=== PATIENT | female | born 1995 | race Hispanic/Latino ===

== ENCOUNTER 2018-12-30 02:55 | Emergency (ER) | payer OTHER ==
[2018-12-30] MEDS ORDERED: SODIUM CHLORIDE 0.9% 1000ML 1,000 ML IV ONE (03:40)
[2018-12-30 03:51] LABS: APPEARANCE,URINE Cloudy (CLEAR); BASOPHILS % (AUTO) 0.5 % (0.0-5.0); BILIRUBIN,URINE Negative (NEGATIVE); COLOR,URINE Yellow (YELLOW); GLUCOSE, URINE (UA) Negative (NEGATIVE); KETONES,URINE Negative (NEGATIVE); LEUKOCYTE ESTERASE ,URINE Moderate (NEGATIVE); MEAN CORPUSCULAR HEMOGLOBIN 25.7 pg (27.0-33.0); MEAN CORPUSCULAR HGB CONC 33.5 g/dL (32.0-36.0); MEAN CORPUSCULAR VOLUME 76.7 fL (79-99); MONOCYTES % (AUTO) 6.3 % (3.0-13.0); NEUTROPHILS % (AUTO) 63.2 % (40.0-77.0); NITRATE,URINE Negative (NEGATIVE); OCCULT BLOOD,URINE Large (NEGATIVE); PLATELET COUNT (AUTO) 306 K/uL (130-400); PROTEIN,URINE Negative (NEGATIVE); RED BLOOD CELL COUNT(AUTO) 4.43 MIL/uL (4.00-5.50); WHITE BLOOD COUNT (AUTO) 10.4 K/uL (4.8-10.8)
[2018-12-30 04:12] LABS: BACTERIA,URINE Moderate /HPF (None Seen); SQUAMOUS EPITHELIAL CELL,UR Few /HPF (0-2)
[2018-12-30 04:17] LABS: CREATININE 0.7 mg/dL (0.5-1.5); POTASSIUM 3.5 mmol/L (3.5-5.1)
[2018-12-30] MEDS ORDERED: CEPHALEXIN 500 MG CAPSULE ONE (04:33)
== END 2018-12-30 05:06 | disposition home or self-care (01) ==
LOC: EDH 02:55
DX: O20.0 Threatened abortion (principal); O23.41 Unspecified infection of urinary tract in pregnancy, first trimester; Z3A.01 Less than 8 weeks gestation of pregnancy
CPT/HCPCS: 36415; 76801; 80048; 81001; 84702; 85025; 86850; 86900; 86901; 99285; J7030

== ENCOUNTER 2019-04-23 23:37 | Observation (INO) | payer MEDICAID ==
[~2019-04-23] VITALS: Ht 154.9 cm; Wt 85.3 kg
[2019-04-24 00:07] LABS: BILIRUBIN,URINE Negative (NEGATIVE); COLOR,URINE Yellow (YELLOW); GLUCOSE, URINE (UA) Negative (NEGATIVE); KETONES,URINE Negative (NEGATIVE); LEUKOCYTE ESTERASE ,URINE Negative (NEGATIVE); NITRATE,URINE Negative (NEGATIVE); OCCULT BLOOD,URINE Negative (NEGATIVE); PH,URINE 6.5 (5.0-8.0); PROTEIN,URINE Negative (NEGATIVE)
[2019-04-24 00:16] LABS: APPEARANCE,URINE CLEAR (CLEAR)
[2019-04-24 00:37] VITALS: BP 120/68
[2019-04-24 00:40] LABS: AMPHET/METH SCREEN,URINE NEGATIVE (NEGATIVE); BARBITURATE SCREEN, URINE NEGATIVE (NEGATIVE); BENZODIAZEPINES SCREEN,URINE NEGATIVE (NEGATIVE); CANNABINOID SCREEN,URINE NEGATIVE (NEGATIVE); COCAINE SCREEN,URINE NEGATIVE (NEGATIVE); OPIATE SCREEN,URINE NEGATIVE (NEGATIVE); PHENCYCLIDINE SCREEN,URINE NEGATIVE (NEGATIVE)
== END 2019-04-24 01:00 | disposition home or self-care (01) ==
LOC: EDH 23:37 → LDH 23:38
PROVIDERS: ADMIT Obstetrics & Gynecology; ATTEND Obstetrics & Gynecology
DX: O36.8130 Decreased fetal movements, third trimester, not applicable or unspecified (principal); O99.012 Anemia complicating pregnancy, second trimester; D64.9 Anemia, unspecified; Z3A.23 23 weeks gestation of pregnancy
CPT/HCPCS: 80305; 81003; 99284; G0378

== ENCOUNTER 2019-06-13 20:46 | Observation (INO) | payer MEDICAID ==
[~2019-06-13] VITALS: Ht 152.4 cm; Wt 88.5 kg
[2019-06-13] MEDS ORDERED: LACTATED RINGERS 1000ML 1,000 ML IV SCH (21:15)
[2019-06-13] MEDS ORDERED: PREN-196 PO (21:20)
[2019-06-13 21:46] LABS: APPEARANCE,URINE CLOUDY (CLEAR); BILIRUBIN,URINE NEGATIVE (NEGATIVE); COLOR,URINE YELLOW (YELLOW); GLUCOSE, URINE (UA) NEGATIVE (NEGATIVE); KETONES,URINE 15 mg/dL (NEGATIVE); LEUKOCYTE ESTERASE ,URINE MODERATE (NEGATIVE); NITRATE,URINE NEGATIVE (NEGATIVE); OCCULT BLOOD,URINE TRACE-INTACT (NEGATIVE); PROTEIN,URINE TRACE mg/dL (NEGATIVE)
[2019-06-13 21:58] LABS: BACTERIA,URINE Many /HPF (None Seen); MUCUS,URINE Moderate LPF (None Seen); SQUAMOUS EPITHELIAL CELL,UR Many /HPF (0-2); WBC,URINE 26-50 /HPF (0-1)
[2019-06-13 22:02] LABS: AMPHET/METH SCREEN,URINE NEGATIVE (NEGATIVE); BARBITURATE SCREEN, URINE NEGATIVE (NEGATIVE); BENZODIAZEPINES SCREEN,URINE NEGATIVE (NEGATIVE); CANNABINOID SCREEN,URINE NEGATIVE (NEGATIVE); COCAINE SCREEN,URINE NEGATIVE (NEGATIVE); OPIATE SCREEN,URINE NEGATIVE (NEGATIVE); PHENCYCLIDINE SCREEN,URINE NEGATIVE (NEGATIVE)
[2019-06-13 22:50] VITALS: BP 117/69
[2019-06-13] MEDS ORDERED: IRON-23 PO (22:55)
[2019-06-13] MEDS ORDERED: METR-172 PO (22:55)
== END 2019-06-13 23:25 | disposition home or self-care (01) ==
LOC: EDH 20:46 → LDH 20:47
PROVIDERS: ADMIT Obstetrics & Gynecology; ATTEND Obstetrics & Gynecology
DX: O36.8130 Decreased fetal movements, third trimester, not applicable or unspecified (principal); Z3A.29 29 weeks gestation of pregnancy
CPT/HCPCS: 59025; 76819; 80305; 81001; 99284; G0378 ×2

== ENCOUNTER 2019-06-21 18:15 | Observation (INO) | payer MEDICAID ==
[~2019-06-21] VITALS: Ht 154.9 cm; Wt 88.9 kg
[~2019-06-21 18:15] MED LIST: IRON-23 PO; METR-172 PO; PREN-196 PO
[2019-06-21 19:34] LABS: APPEARANCE,URINE Cloudy (CLEAR); BILIRUBIN,URINE Negative (NEGATIVE); COLOR,URINE Yellow (YELLOW); GLUCOSE, URINE (UA) Negative (NEGATIVE); KETONES,URINE 40 mg/dL (NEGATIVE); LEUKOCYTE ESTERASE ,URINE Large (NEGATIVE); NITRATE,URINE Negative (NEGATIVE); OCCULT BLOOD,URINE Negative (NEGATIVE); PROTEIN,URINE POS 1+ mg/dL (NEGATIVE)
[2019-06-21 19:47] LABS: BACTERIA,URINE Few /HPF (None Seen); RBC,URINE None Seen /HPF (0-1)
[2019-06-21 20:06] VITALS: BP 113/57
[2019-06-21 20:07] LABS: AMPHET/METH SCREEN,URINE NEGATIVE (NEGATIVE); BARBITURATE SCREEN, URINE NEGATIVE (NEGATIVE); BENZODIAZEPINES SCREEN,URINE NEGATIVE (NEGATIVE); CANNABINOID SCREEN,URINE NEGATIVE (NEGATIVE); COCAINE SCREEN,URINE NEGATIVE (NEGATIVE); OPIATE SCREEN,URINE NEGATIVE (NEGATIVE); PHENCYCLIDINE SCREEN,URINE NEGATIVE (NEGATIVE)
[2019-06-21] MEDS ORDERED: LACTATED RINGERS 1000ML IV ONE (20:15)
[2019-06-21] MEDS ORDERED: LACTATED RINGERS 1000ML 1,000 ML IV SCH (21:15)
== END 2019-06-21 22:25 | disposition home or self-care (01) ==
LOC: EDH 18:15 → LDH 19:09
PROVIDERS: ADMIT Obstetrics & Gynecology; ATTEND Obstetrics & Gynecology
DX: O9A.213 Injury, poisoning and certain other consequences of external causes complicating pregnancy, third trimester (principal); M54.5 Low back pain; Z3A.31 31 weeks gestation of pregnancy; W18.39XA Other fall on same level, initial encounter; Y93.01 Activity, walking, marching and hiking; Y92.89 Other specified places as the place of occurrence of the external cause; Y99.8 Other external cause status
CPT/HCPCS: 59025; 80305; 81001; 99284; G0378 ×3; 96360; 96361

== ENCOUNTER 2019-07-23 14:31 | Observation (INO) | payer MEDICAID | END 2019-07-23 16:30 | disposition home or self-care (01) | LOC: LDH 14:31 | PROVIDERS: ADMIT Obstetrics & Gynecology; ATTEND Obstetrics & Gynecology | DX: O34.63 Maternal care for abnormality of vagina, third trimester (principal); Z3A.35 35 weeks gestation of pregnancy | CPT/HCPCS: 59025; 76805; G0378 ==

== ENCOUNTER 2019-07-29 10:49 | Inpatient (IN) | payer MEDICAID ==
[~2019-07-29] VITALS: Ht 152.4 cm; Wt 93.0 kg
[2019-07-29 12:56] LABS: HEMATOCRIT 32.8 % (36-48); MEAN CORPUSCULAR HEMOGLOBIN 25.2 pg (27.0-33.0); MEAN CORPUSCULAR VOLUME 78.7 fL (79-99); PLATELET COUNT (AUTO) 270 K/uL (130-400); RED BLOOD CELL COUNT(AUTO) 4.17 MIL/uL (4.00-5.50); RED CELL DISTRIBUTION WIDTH 15.9 % (11.0-15.5); WHITE BLOOD COUNT (AUTO) 6.9 K/uL (4.8-10.8)
[2019-07-29 13:10] LABS: CREATININE 0.7 mg/dL (0.5-1.5); POTASSIUM 3.8 mmol/L (3.5-5.1)
[2019-07-29 13:14] LABS: ALBUMIN 2.7 g/dL (3.5-5.0); BILIRUBIN,TOTAL 0.2 mg/dL (0.2-1.0); CRP QUANTITATIVE 10.1 mg/L (0.00-9.0); TOTAL PROTEIN, SERUM 7.2 g/dL (6.0-8.3)
[2019-07-29 13:26] LABS: BASOPHILS % (AUTO) 0.4 % (0.0-5.0); EOSINOPHILS % (AUTO) 0.6 % (0.0-8.0); LYMPHOCYTES % (AUTO) 23.4 % (21.0-51.0); MONOCYTES % (AUTO) 7.8 % (3.0-13.0); NEUTROPHILS % (AUTO) 66.8 % (40.0-77.0)
[2019-07-29] MEDS ORDERED: AMPICILLIN 2GM+NS 100ML 100 ML IV SCH (15:15)
[2019-07-29] MEDS ORDERED: OXYTOCIN-LR 20 UNITS/1000 ML 1,000 ML IV SCH (15:45)
[2019-07-29] MEDS: AMPICILLIN 1GM+NS 50ML 50 ML IV SCH ×2 (20:00→23:58)
[2019-07-29] MEDS ORDERED: MISOPROSTOL 25 MCG TABLET VG SCH (20:00)
[2019-07-30] MEDS: LACTATED RINGERS 1000ML 1,000 ML IV PRN ×2 (02:31→19:47)
[2019-07-30] MEDS: AMPICILLIN 1GM+NS 50ML 50 ML IV SCH ×5 (04:15→19:58)
[2019-07-30 07:11] LABS: HEPATITIS Bs ANTIGEN SCREEN P Negative (Negative)
[2019-07-30] MEDS: MICONAZOLE NITRATE 45 GM CREAM.APPL VG SCH (09:00)
[2019-07-30] MEDS ORDERED: PROMETHAZINE HCL 25 MG/ML 1ML AMPULE IM SCH (10:15)
[2019-07-30] MEDS ORDERED: MEPERIDINE-PF 50 MG/ML SYG IVP SCH (10:15)
[2019-07-30] MEDS ORDERED: CALDOLOR 800MG+NS 250ML 250 ML IV ONE (11:28)
[2019-07-30] MEDS ORDERED: CEFAZOLIN SODIUM 1 GM VIAL ONE (11:28)
[2019-07-30] MEDS ORDERED: DURAMORPH PF1 MG/ML 10ML AMP IV ONE (11:29)
[2019-07-30] MEDS ORDERED: EPHEDRINE SULFATE 50 MG/ML AMPULE ONE (11:30)
[2019-07-30] MEDS ORDERED: CALDOLOR 800MG+NS 250ML 250 ML IV PRN (11:30)
[2019-07-30] MEDS ORDERED: CEFAZOLIN SODIUM 1 GM VIAL IVP PRN (11:30)
[2019-07-30] MEDS ORDERED: BISACODYL 10 MG SUPP.RECT RC PRN (11:45)
[2019-07-30] MEDS: IBUPROFEN 800 MG TAB PO SCH ×3 (11:45→19:57)
[2019-07-30] MEDS ORDERED: ACETAMINOPHEN EXTRA STRENGTH 500 MG TABLET PO PRN (11:45)
[2019-07-30] MEDS ORDERED: MEPERIDINE-PF 75 MG/ML SYG IM PRN (11:45)
[2019-07-30] MEDS ORDERED: DIPHENHYDRAMINE HCL 25 MG CAPSULE PO PRN (11:45)
[2019-07-30] MEDS ORDERED: SODIUM CHLORIDE 0.9% 10 ML VIAL IVP PRN (11:45)
[2019-07-30] MEDS ORDERED: OXYTOCIN-LR 20 UNITS/1000 ML 1,000 ML IV PRN (11:45)
[2019-07-30] MEDS ORDERED: DEXTROSE 5 %-0.45 % NACL 1,000 ML IV PRN (11:45)
[2019-07-30] MEDS ORDERED: DIPH,PERTUSS(ACELL),TET VAC/PF 0.5 ML VIAL IM PRN (11:45)
[2019-07-30] MEDS ORDERED: PROMETHAZINE HCL 25 MG/ML 1ML AMPULE IM PRN (11:45)
[2019-07-30] MEDS ORDERED: CEFAZOLIN SODIUM 1 GM VIAL IVP ONE (11:45)
[2019-07-30] MEDS ORDERED: MEASLES/MUMPS/RUBELLA VACCINE, LIVE 0.5 ML/VIAL SQ PRN (11:45)
[2019-07-30] MEDS ORDERED: LANOLIN 30GM OINTMENT TP PRN (11:45)
[2019-07-30] MEDS ORDERED: GLYCOPYRROLATE 1 MG/5 ML SYRINGE ONE (11:54)
[2019-07-30] MEDS ORDERED: METHYLERGONOVINE MALEATE 0.2 MG/1 ML ML ONE (12:02)
[2019-07-30] MEDS ORDERED: MEPERIDINE-PF 50 MG/ML SYG ONE (12:26)
[2019-07-30] MEDS ORDERED: ONDANSETRON HCL 4 MG/2 ML VIAL ONE (12:26)
[2019-07-30] MEDS ORDERED: METHYLERGONOVINE MALEATE 0.2 MG/1 ML ML IM SCH (12:30)
[2019-07-30 14:58] VITALS: BP 134/83
[2019-07-30] MEDS: ACETAMINOPHEN-CODEINE 300/30MG TAB PO PRN (15:11)
[2019-07-30 16:28] VITALS: BP 126/60
[2019-07-30 16:32] VITALS: BP 131/61
[2019-07-30] MEDS: HYDROCODONE/ACETAMINOPHEN 5/325 MG TAB PO PRN (16:35)
[2019-07-30 19:33] VITALS: BP 119/55
[2019-07-30] MEDS: DOCUSATE SODIUM 100 MG CAP PO SCH (19:48)
[2019-07-30] MEDS: CALDOLOR 800MG+NS 250ML 250 ML IV SCH (19:48)
[2019-07-30 23:23] VITALS: BP 113/60
[2019-07-31] MEDS: HYDROCODONE/ACETAMINOPHEN 5/325 MG TAB PO PRN (01:55)
[2019-07-31] MEDS: CALDOLOR 800MG+NS 250ML 250 ML IV SCH (03:09)
[2019-07-31 03:30] VITALS: BP 125/80
[2019-07-31] MEDS: AMPICILLIN 1GM+NS 50ML 50 ML IV SCH (04:04)
--- NOTE | 2019-07-31 06:30 | NUR ---
WOMACK CATH DC'D, CATHETER TIP INTACT. PT. INST TO CALL FOR ASSIST BEFORE GETTING OUT OF BED, VERBALIZED UNDERSTANDING. MELYSSA CARE DONE BY RONALD (PCP); GOT PT UP IN BED TO [place], WELL TOLERATED. Addendum: 07/31/19 at 0649 by DAMIAN SINGH RN RN Amended: Links added.
--- NOTE | 2019-07-31 06:40 | NUR ---
PT. SITTING UP IN CHAIR, WELL TOLERATED.
[2019-07-31 07:10] LABS: HEMATOCRIT 26.8 % (36-48); MEAN CORPUSCULAR HEMOGLOBIN 24.6 pg (27.0-33.0); MEAN CORPUSCULAR HGB CONC 31.3 g/dL (32.0-36.0); MEAN CORPUSCULAR VOLUME 78.6 fL (79-99); PLATELET COUNT (AUTO) 191 K/uL (130-400); RED BLOOD CELL COUNT(AUTO) 3.41 MIL/uL (4.00-5.50); RED CELL DISTRIBUTION WIDTH 15.8 % (11.0-15.5); WHITE BLOOD COUNT (AUTO) 9.2 K/uL (4.8-10.8)
[2019-07-31 07:49] VITALS: BP 105/80
[2019-07-31] MEDS: LACTATED RINGERS 1000ML 1,000 ML IV PRN (08:16)
[2019-07-31] MEDS: DOCUSATE SODIUM 100 MG CAP PO SCH (08:57)
[2019-07-31] MEDS: SIMETHICONE 80 MG TAB.CHEW PO PRN ×3 (08:57→18:04)
[2019-07-31] MEDS: ACETAMINOPHEN-CODEINE 300/30MG TAB PO PRN (08:59)
[2019-07-31] MEDS: MICONAZOLE NITRATE 45 GM CREAM.APPL VG SCH (09:00)
[2019-07-31] MEDS ORDERED: LIDOCAINE 5% TOPICAL PATCH TP SCH (09:00)
[2019-07-31 12:30] VITALS: BP 122/54
[2019-07-31] MEDS: IBUPROFEN 800 MG TAB PO SCH (13:18)
--- NOTE | 2019-07-31 13:30 | NUR ---
MEDICATION FOUND IN L/D AND IS TO BE ADMINISTERED AT HS.
[2019-07-31 16:26] VITALS: BP 130/70
[2019-07-31] MEDS ORDERED: FLU VACC QS2019-20 36MOS UP/PF 60 MCG/0.5 ML ML IM ONE ×2 (17:00→17:08)
--- NOTE | 2019-07-31 17:30 | NUR ---
PATIENT WAS GIVEN DISCHARGE INSTRUCTIONS AND PIV WAS REMOVED AND IV SITE WNL. PATIENT STABLE AND VERBALIZES UNDERSTANDING INSTRUCTIONS GIVEN.
--- NOTE | 2019-07-31 18:45 | NUR ---
PATIENT WAS TAKEN VIA W/C TO FAMILY VEHICLE C[employer]YING [employer]ABY IN [place]. PATIENT STABLE AND DENIES PAIN.
== END 2019-07-31 18:45 | disposition home or self-care (01) | DRG 540 ==
LOC: OBSVTOIN 10:49 → WSH 10:49 → LDH 15:13 → WSH 07-30 14:44
PROVIDERS: ADMIT Obstetrics & Gynecology; ATTEND Obstetrics & Gynecology
PROC: 3E02340 Introduction of Influenza Vaccine into Muscle, Percutaneous Approach (ICD-10-PCS; 2019-07-30)
PROC: 3E0234Z Introduction of Serum, Toxoid and Vaccine into Muscle, Percutaneous Approach (ICD-10-PCS; 2019-07-30)
PROC: 3E0134Z Introduction of Serum, Toxoid and Vaccine into Subcutaneous Tissue, Percutaneous Approach (ICD-10-PCS; 2019-07-30)
PROC: 10D00Z1 Extraction of Products of Conception, Low, Open Approach (ICD-10-PCS; principal; 2019-07-30 11:30)
DX: O41.03X0 Oligohydramnios, third trimester, not applicable or unspecified (principal); O24.420 Gestational diabetes mellitus in childbirth, diet controlled; E66.01 Morbid (severe) obesity due to excess calories; O76 Abnormality in fetal heart rate and rhythm complicating labor and delivery; O69.81X0 Labor and delivery complicated by cord around neck, without compression, not applicable or unspecified; O99.214 Obesity complicating childbirth; O62.2 Other uterine inertia; Z3A.36 36 weeks gestation of pregnancy; Z37.0 Single live birth; Z23 Encounter for immunization
CPT/HCPCS: 36415; 59510; 71045; 76805; 80053; 85025; 85027; 85384; 86140; 86592; 86701; 86850; 86900; 86901; 87340; 87390; 87804; 90715; A4344; G0378; J0290; J0690; J1741; J2175; J2210; J2274; J2405; J2550; J2590; J3490; J7120; Q2035